=== PATIENT | female | born 1985 | race Caucasian/White ===

== ENCOUNTER 2018-01-16 05:30 | Inpatient (IN) | payer BC ==
--- NOTE | 2018-01-15 20:38 | PDOC.LDHP ---
Labor and Delivery H&P Chief complaint: scheduled induction HPI: Pt is a 32yo here for elective IOL, with advanced dilation in the office of 4cm @ 38 weeks, lives remote from the hospital. Current gestational age (weeks): 39 Due date: 01/14/18 Dating criteria: last menstrual period Grav: 2 Para: 1 OB History Details: x 1 Current complications: none Abnormal US findings: No Current medications: pre- vitamins Previous surgical history: none Allergies/Adverse Reactions: Allergies Allergy/AdvReac Type Severity Reaction Status Date / Time No Known Allergies Allergy Verified 09/06/15 23:55 Social history: none - Physical Exam Vital signs reviewed and normal: yes General: resting Heart: RRR Lungs: CTAB Abdomen: gravid FHT: category 1 - Vaginal Exam cm dilated: 4 - OB Labs Blood type: O RH: positive Antibody Screen: negative HIV: negative RPR: negative HEPSAg: negative 1 hour GCT: positive 3 hour GTT: POS GBS: negative Rubella: immune - Assessment L&D Assessment: elective induction at term - Plan Plan: admit to L&D, cervical ripening, labor augmentation if indicated, informed consent obtained, anesthesia consult for pain management -: A/P: @ 39.2 for elective IOL w favorable cerivx. Parents are presumed carriers of SCADD mutation based on testing of first born, declined genetic counseling during PNC. A1GDM, well controlled. Plan for AROM and pitocin for IOL.
[2018-01-16] MEDS ORDERED: Butorphanol Tartrate 1 MG/ML VIAL SLOW IVP PRN (09:12)
[2018-01-16] MEDS ORDERED: Acetaminophen/Codeine 30-300mg Tablet PO PRN ×4 (09:12→16:55)
[2018-01-16] MEDS ORDERED: Ibuprofen 800 MG TAB PO PRN (09:12)
[2018-01-16] MEDS ORDERED: NS / Oxytocin 40 units/1000ml 1,000 ML IV PRN (09:12)
[2018-01-16] MEDS ORDERED: Lidocaine 1% (PF) 30 ML VIAL SC PRN (09:12)
[2018-01-16] MEDS ORDERED: Promethazine HCl 25 MG/ML VIAL IM PRN ×2 (09:12→11:25)
[2018-01-16] MEDS ORDERED: Ondansetron HCl/PF 4 MG/2 ML Vial IVP PRN ×3 (09:12→16:55)
[2018-01-16] MEDS ORDERED: NS w/ Oxytocin 10 units 500 ML IV SCH ×2 (09:12)
[2018-01-16 09:16] VITALS: BMI 23.6
[2018-01-16] MEDS: Lactated Ringer's 1,000 ML IV SCH ×2 (09:32→11:34)
[2018-01-16 09:44] LABS: Hemoglobin 10.7 g/dL (12.0-16.0); Mean Corpuscular HGB CONC 34.5 g/dL (32.0-36.0); Mean Corpuscular Hemoglobin 30.2 pg (27.0-31.0); Mean Corpuscular Volume 87.7 fL (78.0-98.0); Mean Platelet Volume 7.4 fL (7.4-10.4); Platelet Count 184 thou/uL (130-400); RBC Distribution Width 11.8 % (11.5-14.5); Red Blood Cell (RBC) Count 3.54 mill/uL (4.20-5.40); White Blood Cell (WBC) Count 9.8 thou/uL (4.8-10.8)
[2018-01-16] MEDS ORDERED: DISCONTINUE ALL PREVIOUS NARCOTICS FS SCH (09:45)
[2018-01-16] MEDS ORDERED: Bupivacaine 0.5% 20 ML, fentaNYL Citrate/PF 400 MCG in Sodium Chloride 0.9% 72 ML EPIDURAL SCH (09:45)
[2018-01-16 10:23] LABS: HBSAg Index 0.19 S/CO (0-0.99); Hep B Surf Ag Non-Reactive S/CO (NonReactive)
[2018-01-16 10:24] LABS: Syphilis Antibody Nonreactive (Nonreactive); Syphilis Antibody Index 0.03 S/CO (<1.00 Non-Reactive)
[2018-01-16] MEDS ORDERED: Fentanyl 100 MCG/2 ML VIAL ONE (10:51)
[2018-01-16] MEDS ORDERED: Bupivacaine 0.5% 10 ML VIAL ONE (10:51)
[2018-01-16] MEDS ORDERED: Bupivacaine 0.25% 10 ML VIAL EPIDURAL SCH (11:25)
[2018-01-16] MEDS ORDERED: ePHEDrine/0.9% NaCl/PF SYRINGE 50 mg/10 ml SLOW IVP PRN (11:25)
[2018-01-16] MEDS ORDERED: Eucerin (Mineral Oil/Petrolatum,White) 30 gm Jar TOP PRN (11:25)
[2018-01-16] MEDS ORDERED: Fentanyl 100 MCG/2 ML VIAL I-THECAL SCH (11:25)
[2018-01-16] MEDS ORDERED: diphenhydrAMINE 50 MG/ML VIAL IVP PRN (11:25)
[2018-01-16] MEDS ORDERED: Naloxone HCl 0.4 mg/ml Vial IVP PRN ×2 (11:25)
[2018-01-16] MEDS ORDERED: Acetaminophen 325 MG TAB PO PRN (11:25)
[2018-01-16] MEDS ORDERED: Lactated Ringer's 500 ML IV PRN (11:25)
[2018-01-16] MEDS ORDERED: Communication Order-Pharmacy FS SCH (11:30)
[2018-01-16] MEDS ORDERED: fentaNYL Citrate/PF 400 MCG, Bupivacaine 0.5% 20 ML in Sodium Chloride 0.9% 72 ML EPIDURAL SCH (11:30)
--- NOTE | 2018-01-16 13:33 | PDOC.OPDEL ---
OB Operative/Delivery Note Delivery Dr/Surgeon: Cristian Pre-Delivery Diagnosis: elective induction Procedure/Post Delivery Dx: spontaneous vaginal delivery Weeks gestation: 39 Anesthesia: epidural - Findings A Sex: female - Additional Findings/Plan Placenta delivered: spontaneous Repaired Obstetrical Laceration: none Estimated blood loss: less than 100ml
[2018-01-16] MEDS ORDERED: Benzocaine/Menthol 20-0.5% 60 ML CAN TOP PRN (16:55)
[2018-01-16] MEDS ORDERED: NS / Oxytocin 40 units/1000ml 1,000 ML IV SCH (16:55)
[2018-01-16] MEDS ORDERED: Bisacodyl 10 MG SUPP PR PRN (16:55)
[2018-01-16] MEDS ORDERED: Milk Of Magnesia 30 ML UDCUP PO PRN (16:55)
[2018-01-16] MEDS ORDERED: Adacel (T-DAP) 0.5 ML VIAL IM ONE (16:55)
[2018-01-16] MEDS ORDERED: Lanolin Ointment 7 GM TUBE TOP PRN (16:55)
[2018-01-16] MEDS ORDERED: Ibuprofen 800 MG TAB PO SCH (17:00)
[2018-01-16] MEDS: Ferrous Sulfate 325 MG TAB PO SCH (18:30)
[2018-01-16] MEDS: Docusate Calcium (SURFAK) 240 MG CAP PO SCH (21:22)
[2018-01-16] MEDS: Ibuprofen 800 MG TAB PO SCH (22:38)
[2018-01-17] MEDS: Ibuprofen 800 MG TAB PO SCH ×2 (05:19→14:19)
[2018-01-17] MEDS ORDERED: Prenatal Vitamin 1 TAB PO SCH (09:00)
[2018-01-17 09:06] VITALS: BP 124/64; TEMP 98.2
[2018-01-17] MEDS: Docusate Calcium (SURFAK) 240 MG CAP PO SCH (09:56)
[2018-01-17] MEDS: Ferrous Sulfate 325 MG TAB PO SCH (09:56)
--- NOTE | 2018-01-17 14:18 | DIS ---
DATE OF ADMISSION: 01/16/2018 DATE OF DISCHARGE: 01/17/2018 ADMITTING DIAGNOSIS: Elective induction of labor. DISCHARGE DIAGNOSIS: Elective induction of labor. PROCEDURE: Term spontaneous vaginal delivery. HOSPITAL COURSE: The patient is a 32-year-old G2, now P2 female who was admitted for elective induct ion of labor at 38 weeks and 4 cm dilated. 39 weeks and 4 cm dilated. The patient had an uncomplica oscar labor course and delivered by term spontaneous vaginal delivery. Today is day #1, the patient reports she is tolerating p.o., voiding on her own, having decreased lochia and good pain co ntrol. The patient has expressed interest in discharge home today. VITAL SIGNS: Blood pressure today is 107/60, temperature 97.9, pulse of 83, respiratory rate of 18. GENERAL: She appears to be in no acute distress. She is alert and oriented, cooperative and pleasan t to interact with. HEENT: Head is normocephalic, atraumatic. ABDOMEN: Fundus is firm. EXTREMITIES: Nontender, nonedematous. LABORATORY DATA: Pre-delivery hemoglobin 10.7, hematocrit 31.0, and platelets 184,000. DISCHARGE INSTRUCTIONS: The patient will be discharged to home. She has been given instructions to follow up with her primary OB in 6 weeks for routine visit and sooner if she experiences fever, incre asing pain or bleeding. Patient will use [id number] ibuprofen for pain control.
== END 2018-01-17 18:15 | disposition home or self-care (01) | DRG 775 ==
LOC: L&D 08:28 → 3SW 16:55
PROVIDERS: ADMIT Obstetrics & Gynecology; ATTEND Obstetrics & Gynecology
PROC: 10E0XZZ Delivery of Products of Conception, External Approach (ICD-10-PCS; principal; 2018-01-16)
PROC: 3E033VJ Introduction of Other Hormone into Peripheral Vein, Percutaneous Approach (ICD-10-PCS; 2018-01-16)
PROC: 10907ZC Drainage of Amniotic Fluid, Therapeutic from Products of Conception, Via Natural or Artificial Opening (ICD-10-PCS; 2018-01-16)
DX: O24.429 Gestational diabetes mellitus in childbirth, unspecified control (principal); Z3A.39 39 weeks gestation of pregnancy; Z37.0 Single live birth
CPT/HCPCS: 36415; 51702; 85027; 86780; 86850; 86900; 86901; 87340; J2001; J3010; J3490; J7050; S0020